=== PATIENT | female | born 1965 | race Caucasian/White ===

== ENCOUNTER 2018-05-08 10:29 | Emergency (ER) | payer OTHER ==
[2018-05-08] MEDS ORDERED: NS 0.9% 1000 ML* 1,000 ML IV ONE (10:50)
--- NOTE | 2018-05-08 11:12 | ED ---
Abdominal Pain/Female - HPI Summary HPI Summary: This patient is a 52 year old F presenting to [facility] with a chief complaint of right sided flank/abd pain pain since last PM 05/07/18, and worse this AM. She endorses steady pain that is TTP, pain upon movement, nausea, and vomiting. Pt denies fever, CP, SOB, vaginal discharge or bleeding, and rash. Pt denies cholecystectomy, denies PMHx kidney stones, and denies alcohol use and smoking. - History of Current Complaint Chief Complaint: EDFlankPain Stated Complaint: RT SIDE BACK PAIN Time Seen by Provider: 05/08/18 10:42 Hx Obtained From: Patient Onset/Duration: Sudden Onset, Lasting Hours, Still Present, Worse Since - this AM Severity Initially: Mild Severity Currently: Moderate Pain Intensity: 5 Pain Scale Used: 0-10 Numeric Location: Discrete At: RUQ - trending towards flank Radiates: No Aggravating Factor(s): Movement, Other: - TTP Alleviating Factor(s): Nothing Associated Signs and Symptoms: Positive: Nausea, Vomiting. Negative: Fever, Chest Pain, Urinary Symptoms, Vaginal Bleeding, Vaginal Discharge Allergies/Adverse Reactions: Allergies Allergy/AdvReac Type Severity Reaction Status Date / Time acetaminophen [From Fioricet] Allergy Vomiting Verified 05/08/18 10:35 butalbital [From Fioricet] Allergy Vomiting Verified 05/08/18 10:35 caffeine [From Fioricet] Allergy Vomiting Verified 05/08/18 10:35 oxycodone Allergy Vomiting Verified 05/08/18 10:35 Home Medications: Home Medications SUMAtriptan TAB* [Imitrex TAB*] 100 mg PO SEE INSTRUCTIONS PRN 05/08/18 [ History Confirmed 05/08/18] Zolpidem TAB* [Ambien*] 10 mg PO BEDTIME PRN 05/08/18 [History Confirmed ] PMH/Surg Hx/FS Hx/Imm Hx GI History: Denies: Hx Gall Bladder Disease History: Denies: Hx Kidney Stones Musculoskeletal History: Reports: Hx Joint Replacement - bilateral knees Sensory History: Denies: Hx Contacts or Glasses, Hx Legally Blind Opthamlomology History: Denies: Hx Contacts or Glasses, Hx Legally Blind EENT History: Denies: Hx Deafness - Surgical History Surgery Procedure, Year, and Place: bilateral knee replacement - Immunization History Immunizations Up to Date: Yes Infectious Disease History: No Infectious Disease History: Denies: Traveled Outside the [place] in Last 30 Days - Family History Known Family History: Positive: Diabetes - mother, Other - alcoholism, mother - Social History Occupation: Retired - 27 years [employer] Alcohol Use: Occasionally Substance Use Type: Reports: None Smoking Status (MU): Never Smoked Tobacco Review of Systems Negative: Fever Negative: Chest Pain Negative: Shortness Of Breath Positive: Abdominal Pain, Vomiting, Nausea Positive: flank pain. Negative: discharge, other - bleeding Negative: Rash All Other Systems Reviewed And Are Negative: Yes Physical Exam - Summary Physical Exam Summary: Appearance: Well appearing, no pain distress Skin: warm, dry, reflects adequate perfusion Head/face: normal Eyes: EOMI, CRISTY ENT: normal Neck: supple, non-tender Respiratory: CTA, breath sounds present Cardiovascular: RRR, pulses symmetrical Abdomen: tenderness to RUQ, soft Bowel: present Musculoskeletal: normal, strength/ROM intact Neuro: normal, sensory motor intact, A&Ox3 Triage Information Reviewed: Yes Vital Signs On Initial Exam: Initial Vitals Temp Pulse Resp BP Pulse Ox 97.8 F 71 16 122/79 99 05/08/18 10:32 05/08/18 10:32 05/08/18 10:32 05/08/18 10:32 05/08/18 10:32 Vital Signs Reviewed: Yes Diagnostics - Vital Signs Vital Signs Temp Pulse Resp BP Pulse Ox 05/08/18 10:32 97.8 F 71 16 122/79 99 - Laboratory Result Diagrams: 05/08/18 11:14 05/08/18 11:14 Lab Statement: Any lab studies that have been ordered have been reviewed, and results considered in the medical decision making process. - Radiology CXR Xray Interpretation: No Acute Changes Radiology Interpretation Completed By: Radiologist - No active cardiopulmonary disease. Dr. Logan has reviewed this report. - CT A/P CT Interpretation: Positive (See Comments) CT Interpretation Completed By: Radiologist - NO CONVINCING EVIDENCE OF UROLITHIASIS AND NO EVIDENCE OF OBSTRUCTION. MULTIPLE CALCIFIC DENSITIES IN THE MINOR PELVIS ARE LIKELY PHLEBOLITHS BUT IT IS POSSIBLE THAT ONE OF THESE IS A NONOBSTRUCTIVE CALCULUS. SUGGEST CORRELATION WITH THE URINALYSIS. IF THE URINALYSIS SUGGEST UROLOGIC CAUSE OF PAIN, SUGGEST BLADDER ULTRASONOGRAPHY TO ASSESS THE URETERAL JETS. Dr. Logan has reviewed this report. - Ultrasound No standard instances Ultrasound Interpretation: No Acute Changes Ultrasound Interpretation Completed By: Radiologist - US GB: No evidence of cholelithiasis or biliary duct dilatation. Enlarged echogenic liver consistent with hepatic steatosis. Dr. Logan has reviewed this report. - EKG 1058 Cardiac Rate: NL - 73 EKG Rhythm: Sinus Rhythm EKG Interpretation: no acute changes, RBBB EKG Comparison: No Significant Change Abdominal Pain Fem Course/Dx - Course Course Of Treatment: A 52-year-old F presents to the ED with a CC of RUQ/flank pain since last night, with sx worse this morning. (+) right-sided flank pain, worse with movement and palpation, nausea, vomiting. (-) fever, CP, SOB, vaginal discharge or bleeding, and rash. Denies cholecystectomy, PMHx kidney stones. A CXR was (-). An EKG reveals nl sinus rythym at 73 BPM and a RBBB, with no acute changes. A US GB showed no evidence of cholelithiasis or biliary duct dilatation. CT A/P showed no convincing evidence of urolithiasia and no evidence of obstruction. Multiple calcific densities in the minor pelvis are likely phleboliths but it is possible that one of these is a nonobstructive calculus. In the ED course, pt was given nl saline. - Diagnoses Differential Diagnosis: Positive: Appendicitis, Pancreatitis, Renal Colic, Urinary Tract Infection Provider Diagnoses: Abdominal pain - Provider Notifications Discussed Care Of Patient With: Clive Dudley Time Discussed With Above Provider: 13:45 Instructed by Provider To: Other - recommends discharge Discharge - Sign-Out/Discharge Documenting (check all that apply): Patient Departure - discharge - Discharge Plan Condition: Stable Disposition: HOME Prescriptions: Ibuprofen TAB* [Motrin TAB* 600 MG] 600 mg PO Q8H PRN #15 tab MDD 3 PRN Reason: Pain Patient Education Materials: Abdominal Pain (ED) Referrals: [facility] [Provider Group] - 3 Days Additional Instructions: RETURN TO EMERGENCY DEPARTMENT FOR ANY NEW OR WORSENING SYMPTOMS. - Billing Disposition and Condition Condition: STABLE Disposition: Home
[2018-05-08 11:21] LABS: ABS Basophils 0 10^3/ul (0-0.2); ABS Eosinophils 0 10^3/ul (0-0.6); ABS Lymphocytes 1.5 10^3/ul (1.0-4.8); ABS Monocytes 0.4 10^3/ul (0-0.8); ABS Neutrophils 4.7 10^3/ul (1.5-7.7); ABS Nucleated RBC 0 10^3/ul; Eosinophil % 0.1 % (0-6); Hematocrit 43 % (35-47); Hemoglobin 14.3 g/dl (12.0-16.0); Lymphocyte % 22.1 % (25-47); Mean Corpuscular HGB Conc 33 g/dl (31-36); Mean Corpuscular Hemoglobin 29 pg (27-31); Mean Corpuscular Volume 85 fL (80-97); Mean Platelet Volume 7.7 um3 (7.4-10.4); Nucleated Red Blood Cells % 0.1; Platelet Count 212 10^3/ul (150-450); Red Cell Distribution Width 14 % (10.5-15); White Blood Count 6.6 10^3/ul (3.5-10.8)
[2018-05-08 11:22] LABS: Urine Appearance Clear; Urine Blood Negative (Negative); Urine Color Straw; Urine Ketones Negative (Negative); Urine Protein Negative (Negative); Urine Specific Gravity 1.009 (1.010-1.030); Urine Urobilinogen Negative (Negative)
[2018-05-08 11:32] LABS: INR 0.91 (0.77-1.02)
[2018-05-08 11:43] LABS: EGFR Non-African American 83.4 (>60)
--- NOTE | 2018-05-08 12:09 | RAD ---
Indication: Cholecystitis. Real-time sonography of the right upper quadrant was performed. The liver measures 19 cm in length and is enlarged and echogenic consistent with hepatic steatosis. The gallbladder demonstrates no gallstones, pericholecystic fluid or wall thickening. The common duct measures up to 0.7 cm. The right kidney measures 9.5 x 4.6 x 4.6 cm with no hydronephrosis. The pancreas head neck and proximal body demonstrates no mass or pancreatic duct dilatation. Aorta and inferior vena cava is noted. IMPRESSION: No evidence of cholelithiasis or biliary duct dilatation. Enlarged echogenic liver consistent with hepatic steatosis.
--- NOTE | 2018-05-08 13:02 | RAD ---
INDICATION: Right-sided pain. Negative concurrent gallbladder sonogram. COMPARISON: Gallbladder sonogram same date TECHNIQUE: Noncontrast axial source images were acquired from the level hemidiaphragms to the symphysis pubis as part of CT imaging for renal stone. Lung bases: The lung bases are clear. Liver: The liver is normal in size. Noncontrast imaging shows no evidence of a hepatic mass or ductal dilatation. Gallbladder: There are no calcified gallstones. There is no evidence of wall thickening or pericholecystic fluid.. Spleen: The spleen is normal in size. The noncontrast CT appearance is normal. Pancreas: Noncontrast imaging shows no pancreatic mass or ductal dilitation. Adrenal glands: No masses are identified. Kidneys/Bladder: There is no evidence of nephrolithiasis and no evidence of hydronephrosis. The ureters are normal in caliber. There are multiple calcifications in the minor pelvis along the course the distal ureters which are likely phleboliths but it is possible that one of these represents a nonobstructive calculus. Suggest correlation with urinalysis. Noncontrast imaging shows no evidence of a renal mass. The bladder is unremarkable.. Adenopathy: There is no evidence of intraperitoneal or retroperitoneal adenopathy. Evaluation is limited without oral contrast. Fluid collections: There are no free or localized fluid collections. Vessels: The aorta and iliac vessels are normal in caliber. There are no significant atherosclerotic changes. The IVC appears normal Pelvic organs: The uterus and adnexa appear normal GI tract: Evaluation of the bowel is limited without oral contrast. The stomach, small bowel, and lower GI tract appear grossly normal. There are no obstructive findings. The appendix is visualized and appears normal. Soft tissues: No soft tissue abnormalities of the extraperitoneal abdomen or pelvis are identified. Osseous structures: There are no acute osseous findings. IMPRESSION: NO CONVINCING EVIDENCE OF UROLITHIASIS AND NO EVIDENCE OF OBSTRUCTION. MULTIPLE CALCIFIC DENSITIES IN THE MINOR PELVIS ARE LIKELY PHLEBOLITHS BUT IT IS POSSIBLE THAT ONE OF THESE IS A NONOBSTRUCTIVE CALCULUS. SUGGEST CORRELATION WITH THE URINALYSIS. IF THE URINALYSIS SUGGEST UROLOGIC CAUSE OF PAIN, SUGGEST BLADDER ULTRASONOGRAPHY TO ASSESS THE URETERAL JETS.
--- NOTE | 2018-05-08 13:50 | RAD ---
HISTORY: Right-sided chest pain COMPARISONS: None VIEWS: 4: Frontal dual-energy and lateral views of the chest. FINDINGS: CARDIOMEDIASTINAL SILHOUETTE: The cardiomediastinal silhouette is normal. BONILLA: The bonilla are normal. PLEURA: The costophrenic angles are sharp. No pleural abnormalities are noted. LUNG PARENCHYMA: The lungs are clear. ABDOMEN: The upper abdomen is clear. There is no subphrenic gas. BONES AND SOFT TISSUES: No bone or soft tissue abnormalities are noted. OTHER: The patient is status post left breast augmentation. Capsular calcification is noted. IMPRESSION: NO ACTIVE CARDIOPULMONARY DISEASE.
[2018-05-08 14:24] VITALS: BP 0/0
== END 2018-05-08 14:23 | disposition home or self-care (01) ==
LOC: ED 10:29
DX: R10.11 Right upper quadrant pain (principal); R11.2 Nausea with vomiting, unspecified; Z96.653 Presence of artificial knee joint, bilateral; Z88.6 Allergy status to analgesic agent; Z88.5 Allergy status to narcotic agent; Z88.8 Allergy status to other drugs, medicaments and biological substances; Z83.3 Family history of diabetes mellitus; Z81.1 Family history of alcohol abuse and dependence
CPT/HCPCS: 36415; 71046; 74176; 76705; 80053; 81003; 83690; 84484; 84702; 85025; 85610; 85730; 93005; 96360; 96361; 99282